=== PATIENT | male | born 1975 | race Caucasian/White ===

== ENCOUNTER → 2021-01-23 | Outpatient (CLI) | payer OTHER ==
--- NOTE | 2021-01-23 17:41 | ECHOF ---
Referral Reason:R00.2 MEASUREMENTS -------- HEIGHT: 180.3 cm WEIGHT: 104.3 kg BP: RVIDd: 3.4 cm (< 3.3) IVSd: 1.4 cm (0.6 - 1.1) LVIDd: 4.3 cm (3.9 - 5.3) LVPWd: 1.2 cm (0.6 - 1.1) IVSs: 1.8 cm LVIDs: 2.4 cm LVPWs: 1.7 cm LAESV Index (A-L): 26.34 ml/m Ao Diam: 3.1 cm (2.0 - 3.7) AV Cusp: 2.1 cm (1.5 - 2.6) MV EXCURSION: 18.450 mm (> 18.000) MV EF SLOPE: 76 mm/s (70 - 150) EPSS: 0.3 cm MV E Steven: 0.68 m/s MV DecT: 242 ms MV A Steven: 0.34 m/s MV E/A Ratio: 2.02 RAP: 5.00 mmHg RVSP: 30.81 mmHg FINDINGS -------- Sinus rhythm. This was a technically adequate study. The left ventricular size is normal. There is mild concentric left ventricular hypertrophy. Overa ll left ventricular systolic function is normal with, an EF between 55 - 60 %. The diastolic fillin g pattern is normal for the age of the patient 7.25. The right ventricle is mildly enlarged. Normal LA size by volume 22+/-6 ml/m2. The right atrial size is normal. Interatrial and interventricular septum intact. The aortic valve is trileaflet and appears structurally normal. There is no evidence of aortic regu rgitation. There is no evidence of aortic stenosis. There is trace to mild mitral regurgitation. Mild tricuspid regurgitation present. There is no evidence of pulmonary hypertension. The right v entricular systolic pressure, as measured by Doppler, is 30.81mmHg. There is no pulmonic regurgitation present. The aortic root size is normal. IVC Not well visulized. There is no pericardial effusion. CONCLUSIONS -------- 1. The left ventricular size is normal. 2. There is mild concentric left ventricular hypertrophy. 3. Overall left ventricular systolic function is normal with, an EF between 55 - 60 %. 4. The diastolic filling pattern is normal for the age of the patient 7.25 5. The right ventricle is mildly enlarged. 6. There is trace to mild mitral regurgitation. 7. Mild tricuspid regurgitation present. TRAIN INSPECTOR: Cathy Vale RDCS
== END | disposition home or self-care (01) ==
LOC: RADECHMAIN 16:25
PROVIDERS: ATTEND Internal Medicine
DX: I08.1 Rheumatic disorders of both mitral and tricuspid valves (principal)
CPT/HCPCS: 93306

== ENCOUNTER 2021-07-05 22:52 | Emergency (ER) | payer OTHER ==
[2021-07-05] MEDS ORDERED: DIAZEPAM 5 MG/ML 2 ML INJ IM ONE (23:34)
[2021-07-06] MEDS ORDERED: HYDROmorphone 1 MG/ML 1 ML SYRINGE IM STA (01:08)
[2021-07-06] MEDS ORDERED: ONDANSETRON ODT 4 MG TAB PO STA (01:19)
[2021-07-06 01:38] VITALS: RESP 20
--- NOTE | 2021-07-06 01:38 | ED ---
Back Pain HPI - General Chief Complaint: Back Pain/Injury Stated Complaint: Back Pain Time Seen by Provider: 07/05/21 23:03 Source: patient, EMS, RN notes reviewed Mode of arrival: EMS Limitations: no limitations - History of Present Illness Initial Comments: Patient is a 45-year-old male presenting to the emergency department via EMS with complaints of back pain that started about 10 AM this morning. Patient states she has a history of chronic low back pain, normally deals with muscle spasms. He states he was lifting up some kayaks when he felt a pain in his lower back. [place], drove all the way back home and has been trying to do with this at home. He states he tried to go to his kitchen and ended up crawling on the floor and could not get back up so they called EMS. Patient received 50 g of an only EMS prior to arrival. Currently he is resting comfortably, his pain is minimal, he is afraid to move around secondary to spasms. He denies any loss of bowel or bladder continence, no saddle paresthesias, no numbness and tingling to his extremities. He denies any radiation of the pain. The pain is in his lumbar region, bilaterally. Denies fevers or chills. No further complaints at this time. His vitals are stable upon arrival. - Related Data Previous Rx's Medication Instructions Recorded Cyclobenzaprine [Flexeril] 10 mg PO BID #15 tab 07/06/21 HYDROcodone/APAP 5-325MG [Pike 1 tab PO Q6HR PRN 3 Days #12 tab 07/06/21 5-325] Allergies Allergy/AdvReac Type Severity Reaction Status Date / Time No Known Allergies Allergy Verified 07/05/21 23:00 Review of Systems ROS Statement: Those systems with pertinent positive or pertinent negative responses have been documented in the HPI. ROS Other: All systems not noted in ROS Statement are negative. Past Medical History Past Medical History: No Reported History History of Any Multi-Drug Resistant Organisms: None Reported Additional Past Surgical History / Comment(s): skin grafts as a child Past Psychological History: No Psychological Hx Reported Smoking Status: Former smoker Past Alcohol Use History: None Reported Past Drug Use History: None Reported General Exam - General Exam Comments Initial Comments: GENERAL: Patient is well-developed and well-nourished. Patient is nontoxic and in mild distress. HEAD: Atraumatic, normocephalic. EYES: Pupils equal round and reactive to light, extraocular movements intact, sclera anicteric, conjunctiva are normal. Eyelids were unremarkable. ENT: Moist mucous membranes. NECK: Normal range of motion, supple without lymphadenopathy or JVD. LUNGS: Unlabored respirations. Breath sounds clear to auscultation bilaterally and equal. No wheezes rales or rhonchi. HEART: Regular rate and rhythm without murmurs, rubs or gallops. ABDOMEN: Soft, nontender, normoactive bowel sounds. No guarding, no rebound. No masses appreciated. : Deferred MUSCULOSKELETAL: Normal extremities with adequate strength and normal range of motion, no pitting or edema. No clubbing or cyanosis. Tenderness in the lumbar region. NEUROLOGICAL: Patient is alert and oriented x 3. Motor and sensory are also intact. Cranial nerves II through XII grossly intact. Symmetrical smile. Normal speech, normal gait. PSYCH: Normal mood, normal affect. SKIN: Warm, Dry, normal turgor, no rashes or lesions noted. Limitations: no limitations Course Vital Signs 07/05/21 07/06/21 22:53 01:00 Temperature 98.7 F Pulse Rate 66 66 Respiratory 18 20 Rate Blood Pressure 99/68 108/84 O2 Sat by Pulse 94 L 96 Oximetry Medical Decision Making - Medical Decision Making Patient is a 45-year-old male brought in by EMS for back pain. This started abo ut 10 AM this morning when he is lifting kayaks. He denies any falls or trauma. He does have history of chronic low back pain. He states he normally deals with spasms regularly. Patient received 50 g of fentanyl only EMS prior to arrival. He started having some spasms, gave him some Valium/pain control. Patient is resting comfortably. Patient will follow up with Dr. Bhat as an outpatient. I will send him home on some pain control, muscle relaxers. He is agreeable to this plan. He is stable for discharge. Return parameters were discussed with him and he verbalized understanding. Case discussed with Dr. Paredes. Disposition Clinical Impression: Strain of lumbar region, Spasm of back muscles Disposition: HOME SELF-CARE Condition: Stable Instructions (If sedation given, give patient instructions): Acute Low Back Pain (ED) Additional Instructions: Please return to the Emergency Department if symptoms worsen or any other concerns. Recommend heat and/or ice to the low back. Trial of muscle relaxers at nighttime. Please follow-up with your primary care and/or orthopedics as discussed. Prescriptions: Cyclobenzaprine [Flexeril] 10 mg PO BID #15 tab HYDROcodone/APAP 5-325MG [Pike 5-325] 1 tab PO Q6HR PRN 3 Days #12 tab PRN Reason: Pain Is patient prescribed a controlled substance at d/c from ED?: Yes When asked, does pt state using other controlled substances?: No If prescribed controlled substance>3 days was MAPS reviewed?: Prescribed <3 Days If opioid is for acute pain is fill amount 7 days or less?: Yes If Rx opioid, was Start Talking consent form obtained?: Yes Referrals: None,Stated [Primary Care Provider] - 1-2 days Rosario Bhat, [Doctor of Osteopathic Medicine] - 1-2 days Time of Disposition: 02:08
[2021-07-06 02:36] VITALS: BP 110/62; PULSE 64; TEMP 98.2
== END 2021-07-06 02:49 | disposition home or self-care (01) ==
LOC: EC 22:52
DX: S39.012A Strain of muscle, fascia and tendon of lower back, initial encounter (principal); Z87.891 Personal history of nicotine dependence; X50.0XXA Overexertion from strenuous movement or load, initial encounter
CPT/HCPCS: 96372; 99283